=== PATIENT | female | born 2005 | race Caucasian/White ===

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

== ENCOUNTER 2023-06-24 13:41 | Emergency (ER) | payer OTHER, SELFPAY ==
[2023-06-24 13:45] VITALS: BP 119/81; PULSE 88; RESP 16; TEMP 37.1; O2SAT 100
--- NOTE | 2023-06-24 13:50 | ED.SKABFB ---
HPI - Skin/Abscess/Foreign Bdy General Chief complaint: Skin/Abscess/Foreign Body Stated complaint: RASH ON FACE Time Seen by Provider: 06/24/23 13:48 Source: patient and RN notes reviewed Mode of arrival: ambulatory Limitations: no limitations History of Present Illness HPI narrative: 18-year-old female presents concern for rash on her face. Reports that itching and burning. Reports she tried hydrocortisone cream without relief. She denies any new personal skin care products, home care products, medicines. She denies swollen lips, swollen tongue, trouble breathing MD complaint: rash Related Data Home Medications Medication Instructions Recorded Confirmed ketoconazole 2 % shampoo See Rx Instructions .Route .COMPLEX 06/24/23 06/24/23 Allergies Allergy/AdvReac Type Severity Reaction Status Date / Time No Known Allergies Allergy Verified 06/24/23 13:51 Review of Systems Review of Systems: CONSTITUTIONAL: Denies malaise, chills, sweats, or fever. EYES: Denies redness, or discharge. ENT: Denies rhinorrhea, congestion, swollen lips, swollen tongue CARDIOVASCULAR: Denies chest pain, palpitations, or edema. RESPIRATORY: Denies cough or dyspnea. GASTROINTESTINAL: Denies abdominal pain, nausea, vomiting SKIN: Reports burning itching rash on her cheeks MUSCULOSKELETAL: Denies joint pain or myalgia. NEUROLOGIC: Denies headache. All systems reviewed & are unremarkable except as noted in HPI and below PMFSH Past Medical History Medical History Anxiety Left foot pain Plantar fasciitis Vaginal discharge Family History Family History Mother Asthma Unknown Cancer Grandparent Diabetes mellitus maternal grandmother Social History Social History Smoking status: Never smoker Alcohol intake: never Substance use: never Living arrangements: with family Occupation/Education: occupation Gender identity (if verbalized by the patient): Female Sexual Orientation (if Verbalized by the Patient): Straight or Heterosexual Comments At time of signature, agree with nursing past medical, surgical, social and family history. There is no relevant family history pertinent to the presenting complaint Exam Narrative: GENERAL: Well-appearing, well-nourished, and in no acute distress. HEAD: Normocephalic, atraumatic. EYES: PERRLA, conjunctivae clear, and EOMI. ENT: Mucous membranes moist. Oropharynx without edema, erythema or lesions. NECK: Supple. No lymphadenopathy CHEST: Clear to auscultation. No respiratory distress. HEART: Regular rate and rhythm. SKIN: Warm, dry. Slightly raised erythematous rash started on bilateral cheeks, worse on the right side. No induration, tenderness noted, no open lesions or drainage NEURO: Alert and oriented x3. PSYCH: Normal mood and affect Course Course Emergency Course: Patient is aware of diagnosis, understands and agrees to treatment plan. Anticipatory guidance given. Patient agrees to follow-up as directed and is aware of reasons to seek care at the emergency department. Portions of this record may have been created with voice recognition software Level of Care: Express Care Visit Vital Signs Vital signs: Reviewed. MDM - Skin/Abscess/Foreign Bdy MDM Narrative Medical decision making narrative: Does not appear at this time to be erythema multiforme, bullous, SJS, TEN; no evidence at this time to suggest RMSF, endocarditis or Lyme disease; patient looks well, nontoxic and is tolerating oral intake; no neurologic signs or symptoms; no headache, photophobia or neck pain; afebrile; appropriate for initial outpatient treatment; discussed the importance of follow-up, patient agrees; question, viral exanthema, contact dermatitis, allergic dermatitis, eczema, urticaria. No soft palate or uv
== END 2023-06-24 14:00 | disposition home or self-care (01) ==
PROVIDERS: Emergency Provider Nurse Practitioner; PCP Nurse Practitioner Family
DX: L30.9 Dermatitis, unspecified (principal)
CPT/HCPCS: 99213; G0463

== ENCOUNTER 2023-08-05 09:03 | Emergency (ER) | payer OTHER, SELFPAY ==
--- NOTE | ~2023-08-05 | XR_ITS ---
EXAMINATION: XR ankle LT min 3V, XR foot LT min 3V DATE: 08/05/2023 09:22 INDICATION: Dorsal lateral left foot and ankle pain post injury TECHNIQUE: 1. Anteroposterior, mortise, additional oblique and lateral view of the left ankle were obtained. 2. Dorsoplantar, two oblique and lateral views of the left foot were obtained. COMPARISON: None. FINDINGS: Alignment of the left foot and ankle is normal. No fracture or osteochondral lesion. Joint spaces are well maintained. Small sclerotic bone island at the posterior calcaneus. No ankle joint effusion. Th e soft tissues are unremarkable. IMPRESSION: 1. No acute osseous abnormalities. Reviewed, dictated and finalized at location A. IMPRESSION: 1. No acute osseous abnormalities.
--- NOTE | 2023-08-05 09:15 | ED.LOWEXIN ---
HPI - Extremity Injury (Lower) General Chief Complaint: Extremity Injury, Lower Stated Complaint: rolled left ankle Time Seen by Provider: 08/05/23 09:24 Source: patient Mode of arrival: ambulatory Limitations: no limitations History of Present Illness HPI Narrative: 18-year-old female presented for complaint of left ankle and foot pain after injury yesterday. She states she rolled her ankle stepping off of a curb. She has continued to walk on it without difficulty but reports pain with walking him pointing the toes. She took Tylenol, ibuprofen, and applied ice to the site. Denies significant swelling, bruising or deformity. Denies numbness, tingling or weakness. Related Data Allergies Allergy/AdvReac Type Severity Reaction Status Date / Time No Known Allergies Allergy Verified 08/05/23 09:12 Review of Systems Review of Systems: CONSTITUTIONAL: Denies body aches, fever, chills CARDIOVASCULAR: Denies chest pain, palpitations, or edema. RESPIRATORY: Denies cough or dyspnea. SKIN: Denies rash, itching, or wounds. MUSCULOSKELETAL: reports left foot/ankle pain Denies back pain NEUROLOGIC: Denies headache, numbness, tingling, or weakness. All systems reviewed & are unremarkable except as noted in HPI and below PMFSH Past Medical History Medical History Anxiety Left foot pain Plantar fasciitis Vaginal discharge Family History Family History Mother Asthma Unknown Cancer Grandparent Diabetes mellitus maternal grandmother Social History Social History Smoking status: Never smoker Alcohol intake: never Substance use: never Living arrangements: with family Occupation/Education: occupation Gender identity (if verbalized by the patient): Female Sexual Orientation (if Verbalized by the Patient): Straight or Heterosexual Comments At time of signature, I have reviewed and agree with nursing past medical, surgical, social and family history unless otherwise noted. Please see nursing chart for further information. There is no relevant family history pertinent to the presenting complaint Exam Narrative: GENERAL: Well-appearing CHEST: Speaks in full sentences. No respiratory distress. HEART: Regular rate and rhythm. Normal and equal peripheral pulses. EXTREMITIES: Pain reported with palpation over left lateral ankle/foot area. Left foot and ankle have normal strength and sensation, normal range of motion but endorses pain with plantar flexion. No swelling or ecchymosis, No open wounds, or obvious deformity; alignment normal, pulse palpable and equal bilaterally, skin warm, dry, pink. Capillary refill less than 3 seconds. SKIN: Warm, dry, no rash. NEURO: Alert and oriented x3. PSYCH: Normal mood and affect Extrem: Ankle/foot/toe images: 1. area of pain reported Course Course Emergency Course: Patient is aware of diagnosis, understands and agrees to treatment plan. Anticipatory guidance given. Patient agrees to follow-up as directed and is aware of reasons to seek care at the emergency department. Portions of this record may have been created with voice recognition software Level of Care: Express Care Visit Vital Signs Vital signs: Reviewed MDM - Extremity Injury (Lower) MDM Narrative Medical decision making narrative: Discussed physical exam findings and xray. ARLEY applied. Advised supportive measures and signs/symptoms to go to the ER. Pt is appropriate for outpt treatment and f/u. Differential Diagnosis Differential diagnosis: Likely ankle sprain and strain and ankle fracture Imaging Data Radiologist's impression: Patient: De Love : 2005 MR#: [id number] Age: 18 Acct:[id number] Loc: [facility] ADM Date: 08/05/23Attending Dr: Ordering Physician: Jessica Anthony APRN
[2023-08-05 09:31] VITALS: BP 114/62; PULSE 86; RESP 16; TEMP 36.6; O2SAT 100
== END 2023-08-05 09:36 | disposition home or self-care (01) ==
PROVIDERS: Emergency Provider Nurse Practitioner Family; PCP Nurse Practitioner Family
DX: S93.402A Sprain of unspecified ligament of left ankle, initial encounter (principal); S96.912A Strain of unspecified muscle and tendon at ankle and foot level, left foot, initial encounter; X50.9XXA Other and unspecified overexertion or strenuous movements or postures, initial encounter
CPT/HCPCS: 73610; 73630; 99213; G0463

== ENCOUNTER 2025-01-11 09:31 | Emergency (ER) | payer OTHER, SELFPAY ==
[2025-01-11 09:45] VITALS: BP 113/76; PULSE 80; RESP 16; TEMP 36.5; O2SAT 100
--- NOTE | 2025-01-11 10:37 | ED.LOWEXIN ---
HPI - Extremity Injury (Lower) General Chief Complaint: Extremity Injury, Lower Stated Complaint: left heel pain Time Seen by Provider: 01/11/25 10:20 Source: patient and RN notes reviewed Mode of arrival: ambulatory Limitations: no limitations History of Present Illness HPI Narrative: 19-year-old female patient presents today complaining of 3-4 day history of left heel pain. Denies any current injury or trauma, but states 1 year ago she was diagnosed with plantar fasciitis in the affected heel and wore a boot for period of time which did help. She called her PCPs office this week and was told that she was not able to get an appointment due to the upcoming holiday and to wear her boot. She has been wearing it for the last couple of days and it has been somewhat helpful. She is not taking any ebji-bhc-[id number] medication but has been applying ice. Denies numbness or tingling. Patient denies any new shoes. She does typically run for exercise and lifts weights. She is also requesting a note for work so she can wear the boot. Related Data Home Medications ?Medication ?Instructions ?Recorded ?Confirmed ?Last Taken ?Type norelgestromin 150 mcg-e.estradiol patch 01/11/25 Unknown History 35 mcg/24 hr weekly transderm patch (Zafemy) spironolactone 100 mg tablet mg 01/11/25 Unknown History Allergies Allergy/AdvReac Type Severity Reaction Status Date / Time No Known Allergies Allergy Verified 01/11/25 09:43 [facility] Past Medical History Medical History Left foot pain Plantar fasciitis Vaginal discharge Anxiety Family History Family History Mother Asthma Unknown Cancer Grandparent Diabetes mellitus maternal grandmother Social History Social History Social History: 10/16/24 very confident with medical forms Smoking status: Never smoker Alcohol intake: never Substance use: never Do You Feel Safe in your Home?: Yes Lack of Transportation: No Lack of Food: Never True Current Housing: I Have Housing Concerned About Future Housing: No Difficulty Paying Gas/Electric Bills: No Difficulty Paying for Meds: No Currently Unemployed: No Education: High School Diploma/GED Difficulty w/ Childcare or Family Care: No Living arrangements: with family Occupation/Education: occupation Gender identity (if verbalized by the patient): Female Sexual Orientation (if Verbalized by the Patient): Straight or Heterosexual Comments At time of signature, I have reviewed and agree with nursing past medical, surgical, social and family history unless otherwise noted. Please see nursing chart for further information. There is no relevant family history pertinent to the presenting complaint Exam Narrative: GENERAL: Well-appearing, well-nourished, and in no acute distress. HEAD: Normocephalic, atraumatic. EYES: EOMI. No redness or drainage. Conjunctivae normal. ENT: Mucous membranes pink and moist. NECK: Normal AROM. CHEST: No respiratory distress. EXTREMITIES: Left foot: Tenderness along plantar fascia with foot in dorsiflexion. Neurovascularly intact. No edema, erythema, ecchymosis. SKIN: Warm, dry, no rash. Capillary refill normal. Normal skin turgor. NEURO: No focal deficits. Alert and oriented x3. Gait steady. PSYCH: Normal affect. No signs of depression or anxiety. Course Course Level of Care: Express Care Visit Vital Signs Vital signs: Vital Signs Temperature 97.7 F 01/11/25 09:45 Pulse Rate 80 01/11/25 09:45 Respiratory Rate 16 01/11/25 09:45 Blood Pressure 113/76 01/11/25 09:45 Pulse Oximetry 100 01/11/25 09:45 Temperature 97.7 F 01/11/25 09:45 Pulse Rate 80 01/11/25 09:45 Respiratory Rate 16 01/11/25 09:45 Blood Pressure 113/76 01/11/25 09:45 Pulse Oximetry 100 01/11/25 09:45 Reviewed MDM - Extremity Injury (Lower) MDM Narrative Medical decision making narrative: 19-year-old female patient presents today complaining of 3-4 day history of left heel pain. Denies any current injury or trauma, but states 1 year ago she was diagnosed with plantar fasciitis in the affected heel and wore a boot for period of time which did help. She called her PCPs office this week and was told that she was not able to get an appointment due to the upcoming holiday and to wear her boot. She has been wearing it for the last couple of days and it has been somewhat helpful. She is not taking any kxma-ffc-bnujodi medication but has been applying ice. Denies numbness or tingling. Patient denies any new shoes. She does typically run for exercise and lifts weights. She is also requesting a note for work so she can wear the boot. Upon exam, Tenderness along plantar fascia with foot in dorsiflexion. Neurovascularly intact. No edema, erythema, ecchymosis. Patient is wearing her walking boot. Likely etiology is plantar fasciitis. Will prescribe a Medrol Dosepak. Recommend patient follow-up with podiatry for further treatment. Patient agrees with plan. Vital signs stable. Anticipatory guidance given. Work note provided. Differential Diagnosis Differential diagnosis: Likely other (Plantar fasciitis, stress fracture, sprain) Critical Care Time Critical Care Time Critical Care Time: No Discharge Plan Discharge Clinical Impression: Plantar fasciitis, left Patient Disposition: Home Condition: Stable Instructions: Plantar Fasciitis (ED), Plantar Fasciitis Exercises (ED) Additional Instructions: Please take the Medrol Dosepak as directed. You may also try Tylenol or ibuprofen for discomfort if needed. Wear the walking boot for comfort. Follow-up with podiatry for further evaluation. Patient Language: Belarusian Prescriptions: New methylprednisolone [Medrol (Willie)] 4 mg tablets,dose pack See Rx Instructions .ROUTE .COMPLEX Qty: 21 0RF Rx Instructions: orally per package directions No Action spironolactone 100 mg tablet norelgestromin-ethin.estradiol [Zafemy] 150-35 mcg/24 hr patch weekly sumatriptan succinate [Imitrex] 100 mg tablet See Rx Instructions PO .COMPLEX Qty: 14 1RF Rx Instructions: take 1 tab at onset of headache; if no relief, may repeat 1 tab after at least 2 hrs; max = 2 tabs/24 hrs PO drospirenone-ethinyl estradiol [Ciera (28)] 3-0.03 mg tablet 1 tablet PO DAILY Qty: 84 3RF dextroamphetamine-amphetamine [Adderall XR] 20 mg capsule,extended release 24hr 20 mg PO DAILY Qty: 30 0RF Follow-up/Referrals: [facility] [Provider Group, Podiatry] Floyd Núñez Jr., FREDDY [Physician, Podiatry] PHYSICIAN,[facility] [Primary Care Provider, Internal Medicine] Stand Alone Forms: Work/School Release IP Time of Disposition: 10:43
== END 2025-01-11 10:48 | disposition home or self-care (01) ==
PROVIDERS: Emergency Provider Nurse Practitioner
DX: M72.2 Plantar fascial fibromatosis (principal)
CPT/HCPCS: 99213; G0463